=== PATIENT | female | born 1980 | race Caucasian/White ===

== ENCOUNTER 2017-10-11 13:36 | Emergency (ER) | payer OTHER ==
[~2017-10-11] VITALS: Ht 162.6 cm; Wt 95.3 kg
[2017-10-11] MEDS ORDERED: IV NORMAL SALINE 1,000ML 1,000 ML IV SCH (14:00)
--- NOTE | 2017-10-11 14:07 | PHYS DOC ---
Past History Past Medical History: No Pertinent History Past Surgical History: Appendectomy, Cholecystectomy, Hysterectomy Alcohol Use: None Drug Use: None Adult General Chief Complaint Chief Complaint: ABDOMINAL PAIN HPI HPI Patient is a 37-year-old female who presents for evaluation of abdominal pain as well as nausea and vomiting for the last week which has been progressively worsening. She is an appointment to see Dr. Estevez tomorrow for a hernia but due to increasing pain called the office and they directed her to come to the emergency department. She states she's vomited 3 times today. She was total hysterectomy back in April. She thinks that she has had fevers and chills and is noted to be afebrile upon arrival. She denies hematemesis, rectal bleeding, back pain, chest pain or shortness of breath, dizziness or syncope. She reports a history of a cholecystectomy, appendectomy, and the hysterectomy as discussed above. Review of Systems Review of Systems Constitutional: subjective fevers and chills Eyes: Denies change in visual acuity, redness, or eye pain [] HENT: Denies nasal congestion or sore throat [] Respiratory: Denies cough or shortness of breath [] Cardiovascular: No additional information not addressed in HPI [] GI: Denies bloody stools[] +periumbilical abd pain and n/v : Denies dysuria or hematuria [] Musculoskeletal: Denies back pain or joint pain [] Integument: Denies rash or skin lesions [] Neurologic: Denies headache, focal weakness or sensory changes [] Endocrine: Denies polyuria or polydipsia [] All other systems were reviewed and found to be within normal limits, except as documented in this note. Allergies Allergies Allergies Coded Allergies Type Severity Reaction Last Updated Verified prochlorperazine Allergy Unknown 10/11/17 Yes Physical Exam Physical Exam Constitutional: Well developed, well nourished, no acute distress, non-toxic appearance. [] HENT: Normocephalic, atraumatic, bilateral external ears normal, oropharynx moist, no oral exudates, nose normal. [] Eyes: PERRLA, EOMI, conjunctiva normal, no discharge. [] Neck: Normal range of motion, no tenderness, supple, no stridor. [] Cardiovascular:Heart rate regular rhythm, no murmur [] Lungs & Thorax: Bilateral breath sounds clear to auscultation [] Abdomen: Bowel sounds normal, soft, no masses, no pulsatile masses. [] mild periumbilical ttp, no guarding, no rebound, no rigidity Skin: Warm, dry, no erythema, no rash. [] Back: No tenderness, no CVA tenderness. [] Extremities: No tenderness, no cyanosis, no clubbing, ROM intact, no edema. [] Neurologic: Alert and oriented X 3, normal motor function, normal sensory function, no focal deficits noted. [] Psychologic: Affect normal, judgement normal, mood normal. [] Current Patient Data Vital Signs Vital Signs Date Time Temp Pulse Resp B/P (MAP) Pulse Ox O2 Delivery O2 Flow Rate FiO2 10/11/17 13:48 98.5 113 18 97 Room Air EKG EKG [] Radiology/Procedures Radiology/Procedures [address] [address] IMAGING REPORT Signed PATIENT: LILIAN NOGUERA ACCOUNT: [id number] : 1980 LOCATION: ER AGE: 37 SEX: F EXAM STATUS: REG ER ORD. PHYSICIAN: JONY PENNY DO REASON: periumbilical pain, n/v PROCEDURE: CT ABD PELV W/ IV CONTRST ONLY CT of the abdomen and pelvis with contrast 10/11/2017 2:48 PM Indication: NAUSEA, VOMITING, PERIUMBILICAL PAIN. PALPABLE LUMP BETWEEN STERNUM AND UMBILICUS. PAINFUL TO TOUCH. AREA APPRX MARKED WITH BB
Comparison study: None unavailable for review Technique: Multidetector CT imaging of the abdomen and pelvis was performed following the administration of IV contrast. Findings: There is a 4 mm noncalcified nodule in the left lung base (axial image #6. Bowel scarring or atelectasis is seen in the left lower lobe. The gallbladder is surgically absent. The liver demonstrates no acute abnormalities. The spleen and pancreas are grossly unremarkable. There is a 1.1 cm nodule in the left adrenal gland. The attenuation characteristics are nonspecific. The right adrenal gland is unremarkable. The kidneys are unremarkable. The bladder is grossly unremarkable. The appendix is surgically absent. There is no evidence of bowel obstruction. Mild descending and sigmoid colonic diverticulosis is noted. There is a small cyst in the inferior medial right liver. Postsurgical changes involving the terminal ileum appeared to be present. Correlate with surgical history. No free fluid or free air is seen in the abdomen or pelvis. There is a small fat filled ventral hernia noted superior to the umbilicus. The area lies just inferior to the skin marker placed in the area of palpable concern. The transverse colon immediately underlies the fatty hernia. The neck is narrow and best appreciated on sagittal views measuring 4 mm in diameter. Mild fat stranding associated with the fatty hernia seen. Findings may represent herniated peritoneal fat, or herniation of an epiploic appendage. Incarceration of the fatty hernia is possible given stranding and clinical history of pain. No evidence of acute osseous abnormality is identified. IMPRESSION: 1. Fat filled ventral hernia superior to the umbilicus containing retroperitoneal fat versus an epiploic appendage. Mild fat stranding is seen. Incarceration not excluded. 2. 1.1 cm nodule, left adrenal gland. Attenuation characteristics are nonspecific. Consider comparison with prior imaging versus adrenal protocol MRI. 3. 4 mm noncalcified nodule, left lung base. Recommend CT surveillance is described below. Laboratory Tests Test 10/11/17 14:00 10/11/17 14:14 Urine Collection Type Unknown Urine Color Yellow Urine Clarity Clear Urine pH 8.5 Urine Specific [place] 1.015 Urine Protein Neg Urine Glucose (UA) Neg mg/dL Urine Ketones (Stick) Neg mg/dL Urine Blood Neg Urine Nitrite Neg Urine Bilirubin Neg Urine Urobilinogen Dipstick 0.2 mg/dL Urine Leukocyte Esterase Neg Urine RBC 0 /HPF Urine WBC 0 /HPF Urine Squamous Epithelial Cells Few /LPF Urine Bacteria 0 /HPF Urine Mucus Slight /LPF White Blood Count 9.1 x10^3/uL Red Blood Count 4.69 x10^6/uL Hemoglobin 13.4 g/dL Hematocrit 39.8 % Mean Corpuscular Volume 85 fL Mean Corpuscular Hemoglobin 29 pg Mean Corpuscular Hemoglobin Concent 34 g/dL Red Cell Distribution Width 15.3 % Platelet Count 367 x10^3/uL Neutrophils (%) (Auto) 68 % Lymphocytes (%) (Auto) 21 % Monocytes (%) (Auto) 5 % Eosinophils (%) (Auto) 5 % Basophils (%) (Auto) 1 % Neutrophils # (Auto) 6.2 x10^3uL Lymphocytes # (Auto) 1.9 x10^3/uL Monocytes # (Auto) 0.4 x10^3/uL Eosinophils # (Auto) 0.5 x10^3/uL Basophils # (Auto) 0.1 x10^3/uL Sodium Level 138 mmol/L Potassium Level 3.9 mmol/L Chloride Level 104 mmol/L Carbon Dioxide Level 27 mmol/L Anion Gap 7 Blood Urea Nitrogen 10 mg/dL Creatinine 0.8 mg/dL Estimated GFR (Cockcroft-Gault) 79.9 BUN/Creatinine Ratio 13 Glucose Level 99 mg/dL Calcium Level 9.1 mg/dL Total Bilirubin 0.3 mg/dL Aspartate Amino Transf (AST/SGOT) 18 U/L Alanine Aminotransferase (ALT/SGPT) 31 U/L Alkaline Phosphatase 87 U/L Total Protein 7.0 g/dL Albumin 3.1 g/dL Albumin/Globulin Ratio 0.8 Lipase 101 U/L Current Medications Medications (Trade) Dose Ordered Sig/Symone Route PRN Reason Start Time Stop Time Status Last Admin Dose Admin Morphine Sulfate (Morphine 4mg Syringe) 4 mg PRN Q15MIN PRN IV/SQ PAIN GREATER THAN 3/10 10/11/17 14:00 10/12/17 13:59 10/11/17 15:09 Sodium Chloride 1,000 ml @ 1,000 mls/hr Q1H IV 10/11/17 14:00 10/11/17 14:59 DC 10/11/17 14:19 Ondansetron HCl (Zofran) 4 mg 1X ONCE IV 10/11/17 14:15 10/11/17 14:16 DC 10/11/17 14:19 Iohexol (Omnipaque 300 Mg/ml) 75 ml 1X ONCE IV 10/11/17 14:40 10/11/17 14:41 DC 10/11/17 14:27 Course & Med Decision Making Course & Med Decision Making Pertinent Labs and Imaging studies reviewed. (See chart for details) @3017 - Patient and family member updated on lab and imaging results. She has what appears to be an incarcerated ventral wall fat-containing hernia. Pt re- evaluated and she still appears quite uncomfortable despite multiple doses of narcotic pain medication. Explained to the patient that if we observe her overnight we do not have surgery available at this facility and that she would need to be transferred. She states she is okay with this plan. The patient's surgeon, Dr. Estevez, is unavailable at this time. [facility] called to discuss with general surgery. @4336 - Dr. Ng at [facility] accepts the transfer for surgical consultation as well as pain and nausea management. Dragon Disclaimer Dragon Disclaimer This electronic medical record was generated, in whole or in part, using a voice recognition dictation system. Departure Departure: Impression: Primary Impression: Ventral hernia Additional Impressions: Intractable abdominal pain Nausea and vomiting Disposition: 05 XFER OTHER (Dr. Ng at [facility]) Condition: STABLE Referrals: PCP,UNKNOWN (PCP) Problem Qualifiers JONY PENNY DO Oct 11, 2017 14:07
[2017-10-11] MEDS ORDERED: ONDANSETRON PF 4 MG/2 ML VIAL. IV ONE (14:15)
[2017-10-11] MEDS: MORPHINE SULFATE 4 MG/ML DISP.SYRIN. IV/SQ PRN ×2 (14:19→15:09)
[2017-10-11 14:22] LABS: BACTERIA,URINE 0 /HPF (0-FEW); BILIRUBIN,URINE NEG (NEG); CLARITY,URINE CLEAR; COLOR,URINE YELLOW; GLUCOSE,URINE NEG (NEG); NITRITE,URINE NEG (NEG); RBC,URINE 0 /HPF (0-2); SQUAMOUS EPITHELIAL CELL,UR FEW /LPF; UROBILINOGEN,URINE 0.2 mg/dL (0.2 mg/dL); WBC,URINE 0 /HPF (0-4)
[2017-10-11 14:35] LABS: BASO # 0.1 x10^3/uL (0.0-0.2); BASO % 1 % (0-3); EOS # 0.5 x10^3/uL (0.0-0.7); EOS % 5 % (0-3); HEMATOCRIT 39.8 % (36.0-47.0); HEMOGLOBIN 13.4 g/dL (12.0-15.5); LYMPH # 1.9 x10^3/uL (1.0-4.8); LYMPH % 21 % (24-48); MEAN CORPUSCULAR HEMOGLOBIN 29 pg (25-35); MEAN CORPUSCULAR HGB CONC 34 g/dL (31-37); MEAN CORPUSCULAR VOLUME 85 fL (79-100); MONO # 0.4 x10^3/uL (0.0-1.1); MONO % 5 % (0-9); NEUT # 6.2 x10^3uL (1.8-7.7); NEUT % 68 % (31-73); PLATELET COUNT 367 x10^3/uL (140-400); RED BLOOD COUNT 4.69 x10^6/uL (3.50-5.40); RED CELL DISTRIBUTION WIDTH 15.3 % (11.5-14.5); WHITE BLOOD COUNT 9.1 x10^3/uL (4.0-11.0)
[2017-10-11] MEDS ORDERED: IOHEXOL 300 MG/ML 75 ML VIAL. IV ONE (14:40)
[2017-10-11 14:47] LABS: ALBUMIN 3.1 g/dL (3.4-5.0); ALBUMIN/GLOBULIN RATIO 0.8 (1.0-1.7); CALCIUM 9.1 mg/dL (8.5-10.1); CREATININE 0.8 mg/dL (0.6-1.0); GFR 79.9; POTASSIUM 3.9 mmol/L (3.5-5.1); TOTAL BILIRUBIN 0.3 mg/dL (0.2-1.0)
--- NOTE | 2017-10-11 15:01 | RAD ---
CT of the abdomen and pelvis with contrast 10/11/2017 2:48 PM Indication: NAUSEA, VOMITING, PERIUMBILICAL PAIN. PALPABLE LUMP BETWEEN STERNUM AND UMBILICUS. PAINFUL TO TOUCH. AREA APPRX MARKED WITH BB
Comparison study: None unavailable for review Technique: Multidetector CT imaging of the abdomen and pelvis was performed following the administration of IV contrast. Findings: There is a 4 mm noncalcified nodule in the left lung base (axial image #6. Bowel scarring or atelectasis is seen in the left lower lobe. The gallbladder is surgically absent. The liver demonstrates no acute abnormalities. The spleen and pancreas are grossly unremarkable. There is a 1.1 cm nodule in the left adrenal gland. The attenuation characteristics are nonspecific. The right adrenal gland is unremarkable. The kidneys are unremarkable. The bladder is grossly unremarkable. The appendix is surgically absent. There is no evidence of bowel obstruction. Mild descending and sigmoid colonic diverticulosis is noted. There is a small cyst in the inferior medial right liver. Postsurgical changes involving the terminal ileum appeared to be present. Correlate with surgical history. No free fluid or free air is seen in the abdomen or pelvis. There is a small fat filled ventral hernia noted superior to the umbilicus. The area lies just inferior to the skin marker placed in the area of palpable concern. The transverse colon immediately underlies the fatty hernia. The neck is narrow and best appreciated on sagittal views measuring 4 mm in diameter. Mild fat stranding associated with the fatty hernia seen. Findings may represent herniated peritoneal fat, or herniation of an epiploic appendage. Incarceration of the fatty hernia is possible given stranding and clinical history of pain. No evidence of acute osseous abnormality is identified. IMPRESSION: 1. Fat filled ventral hernia superior to the umbilicus containing retroperitoneal fat versus an epiploic appendage. Mild fat stranding is seen. Incarceration not excluded. 2. 1.1 cm nodule, left adrenal gland. Attenuation characteristics are nonspecific. Consider comparison with prior imaging versus adrenal protocol MRI. 3. 4 mm noncalcified nodule, left lung base. Recommend CT surveillance is described below. Pulmonary Nodule Followup: Fleischner Society recommendations (Radiology 2005; 237; 395-400): In a low risk patient: 4mm or less - No follow up required. >4-6mm- 12 month follow up, if unchanged, no further follow up. >6-8mm- 6-12 month follow up, then at 18-24 months if no change. >8mm- 3, 9, 24 month follow up or consideration of PET/CT. In a high risk patient: <4mm - 12 month follow up, if unchanged then no further follow up. >4-6mm- 6-12 month follow up, then at 18-24 months if no change. >6-8mm- 3-6 month follow up, then at 9-12 months and [address] DOSING PQRS STATEMENT: One or more of the following individualized dose reduction techniques were utilized for this examination: 1. Automated exposure control 2. Adjustment of the mA and/or kV according to patient size 3. Use of iterative reconstruction technique Electronically signed by: Home Bell MD (10/11/2017 2:58 PM) [id number]
[2017-10-11] MEDS ORDERED: METOCLOPRAMIDE HCL 10 MG/2 ML VIAL. IV ONE (15:45)
[2017-10-11 16:26] VITALS: BP 134/93
== END 2017-10-11 16:40 | disposition short-term general hospital (02) ==
LOC: ER 13:36
DX: K43.9 Ventral hernia without obstruction or gangrene (principal); R11.2 Nausea with vomiting, unspecified; Z90.49 Acquired absence of other specified parts of digestive tract; Z90.710 Acquired absence of both cervix and uterus; Z88.8 Allergy status to other drugs, medicaments and biological substances
CPT/HCPCS: 36415; 74177; 80053; 81001; 83690; 85025; 96361; 96374; 96375; 96376; 99285; J2270; J2405; J2765; J3010; Q9967; J7030

== ENCOUNTER 2021-07-28 08:05 | Emergency (ER) | payer BC, OTHER ==
[~2021-07-28] VITALS: Ht 162.6 cm; Wt 115.7 kg
--- NOTE | 2021-07-28 08:24 | PHYS DOC ---
Past History Past Medical History: No Pertinent History Past Surgical History: Appendectomy, Cholecystectomy, Hysterectomy Alcohol Use: None Drug Use: None General Adult EDM: Chief Complaint: ABDOMINAL PAIN HPI: HPI: 41-year-old female presents with right lower quadrant abdominal pain. The patient works nights and she was having pain most of her shift. It started she was just sitting at her desk. The pain is a sharp stabbing pain 7 out of 10. 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 She has had a total hysterectomy and oophorectomy. She does not have an appendix. Denies fever, chills, falls, or trauma. Review of Systems: Review of Systems: Constitutional: Denies fever or chills Eyes: Denies change in visual acuity HENT: Denies nasal congestion or sore throat Respiratory: Denies cough or shortness of breath Cardiovascular: Denies chest pain or edema GI: Right lower quadrant abdominal pain. Denies nausea, vomiting, bloody stools or diarrhea : Denies dysuria Musculoskeletal: Denies back pain or joint pain Integument: Denies rash Neurologic: Denies headache, focal weakness or sensory changes Endocrine: Denies polyuria or polydipsia Lymphatic: Denies swollen glands Psychiatric: Denies depression or anxiety Current Medications: Current Meds: Current Medications Medications (Trade) Dose Ordered Sig/Symone Start Time Stop Time Status Last Admin Dose Admin Sodium Chloride 1,000 ml @ 1,000 mls/hr 1X ONCE 07/28/21 08:30 07/28/21 09:29 UNV Allergies: Allergies: Allergies Coded Allergies Type Severity Reaction Last Updated Verified prochlorperazine Allergy Unknown 10/11/17 Yes Physical Exam: PE: Constitutional: Well developed, well nourished, morbidly obese, no acute distress, non-toxic appearance. [] HENT: Normocephalic, atraumatic, bilateral external ears normal, oropharynx moist, no oral exudates, nose normal. [] Eyes: PERRLA, EOMI, conjunctiva normal, no discharge. [] Neck: Normal range of motion, no tenderness, supple, no stridor. [] Cardiovascular: Heart rate regular rhythm, no murmur [] Lungs & Thorax: Bilateral breath sounds clear to auscultation [] Abdomen: Bowel sounds normal, soft, right lower quadrant tenderness, no masses, no pulsatile masses. [] Skin: Warm, dry, no erythema, no rash. [] Back: No tenderness, no CVA tenderness. [] Extremities: No tenderness, no cyanosis, no clubbing, ROM intact, no edema. [] Neurologic: Alert and oriented X 3, normal motor function, normal sensory function, no focal deficits noted. [] Psychologic: Affect normal, judgement normal, mood normal. [] EKG: EKG: [] Radiology/Procedures: Radiology/Procedures: [] Impressions: Exam: CT abdomen/pelvis with intravenous contrast Indication: Right lower quadrant pain, history of bowel resection. Comparison: CT abdomen and pelvis 10/11/2017 Technique: Helical CT imaging performed of the abdomen and pelvis after the intravenous administration of 75 mL Omnipaque 300 contrast. Sagittal and coronal reformats were obtained. One or more of the following individualized dose reduction techniques were utilized for this examination: 1. Automated exposure control 2. Adjustment of the mA and/or kV according to patient size 3. Use of iterative reconstruction technique. Findings: Lower chest: Mild atelectasis in the lung bases. The heart is normal in size. Liver: The liver is normal in size. No focal liver lesion. Gallbladder/Biliary Tree: The gallbladder is surgically absent. Bile ducts are within normal limits. Pancreas: Normal. Spleen: Normal. Adrenal Glands: Unchanged 1.2 cm left adrenal nodule, indeterminate but stable from 2018. The right adrenal gland is normal. Kidneys/Ureters/Bladder: Normal. No hydronephrosis. Reproductive Organs: Uterus is surgically absent. No adnexal mass. Stomach, small bowel, and colon: The stomach, small bowel, and colon are normal. There are surgical changes of the distal small bowel. Probable surgical changes of appendectomy. Mild sigmoid diverticulosis. Vasculature: No aortic aneurysm. Lymph Nodes: No lymphadenopathy. Peritoneum and retroperitoneum: No free fluid or free air. Bones: No acute osseous abnormality. Miscellaneous: Interval repair of ventral hernia. Impression: 1. No acute abnormality in the abdomen and pelvis. 2. Unchanged 1.2 cm left adrenal nodule, indeterminate but likely an adenoma given stability since 2018. 3. Surgical changes of the distal small bowel and probable appendectomy. Electronically signed by: Angeline Garduno MD (07/28/2021 9:35 AM) [id number] DICTATED AND SIGNED BY: ANGELINE GRADUNO MD DATE: 07/28/2128 CC: KEVIN KEVIN DO; PCP,NO ~ Heart Score: C/O Chest Pain: N/A Risk Factors: Risk Factors: DM, Current or recent (<one month) smoker, HTN, HLP, family history of CAD, obesity. Risk Scores: Score 0 - 3: 2.5% MACE over next 6 weeks - Discharge Home Score 4 - 6: 20.3% MACE over next 6 weeks - Admit for Clinical Observation Score 7 - 10: 72.7% MACE over next 6 weeks - Early Invasive Strategies Course & Med Decision Making: Course & Med Decision Making Pertinent Labs and Imaging studies reviewed. (See chart for details) The patient's labs are unremarkable. Her urinalysis is negative for infection. The patient has needed morphine and Dilaudid for pain control. CT of the abdomen pelvis is negative for acute findings. Given her history, adhesions is a possible source. I have advised that she follow-up with her primary physician and consider surgery consult. I also advised that she follow-up with [facility]. She has had a hysterectomy and oophorectomy however she admits she gained a lot of weight after her surgery. I am unsure if estrogen levels from her body fat could contribute to hormonal activation of endometrial tissue. She will follow- up with the specialist. I will discharge her with a short course of [place]. She is stable for discharge at this time. [] Chon Disclaimer: [place] Disclaimer: This electronic medical record was generated, in whole or in part, using a voice recognition dictation system. Departure Departure: Impression: Primary Impression: Abdominal pain Disposition: HOME / SELF CARE / HOMELESS Condition: STABLE Referrals: PCP,NO (PCP) Patient Instructions: Abdominal Pain, [id number], Adhesions, [id number] Scripts Hydrocodone/Acetaminophen (Hydrocodone-Acetamin 5-325 mg) 1 Each Tablet 1 EACH PO Q4-6HRS PRN for PAIN, #10 TAB Prov: KEVIN KEVIN DO 07/28/21 KEVIN KEVIN DO July 28, 2021 08:23
[2021-07-28] MEDS ORDERED: MORPHINE SULFATE 4 MG/ML DISP.SYRIN. IV ONE (08:30)
[2021-07-28] MEDS ORDERED: IV NORMAL SALINE 1,000ML 1,000 ML IV ONE ×2 (08:30→09:45)
[2021-07-28] MEDS ORDERED: ONDANSETRON PF 4 MG/2 ML VIAL. IVP ONE (08:30)
[2021-07-28] MEDS ORDERED: IOHEXOL 300 MG/ML 75 ML VIAL. ONE (08:36)
[2021-07-28] MEDS ORDERED: IOHEXOL 300 MG/ML 75 ML VIAL. IV ONE (08:45)
[2021-07-28 08:51] LABS: BASO # 0.1 x10^3/uL (0.0-0.2); BASO % 1 % (0-3); EOS # 0.7 x10^3/uL (0.0-0.7); EOS % 10 % (0-3); HEMATOCRIT 37.2 % (36.0-47.0); HEMOGLOBIN 12.4 g/dL (12.0-15.5); LYMPH # 2.4 x10^3/uL (1.0-4.8); LYMPH % 36 % (24-48); MEAN CORPUSCULAR HEMOGLOBIN 28 pg (25-35); MEAN CORPUSCULAR HGB CONC 33 g/dL (31-37); MEAN CORPUSCULAR VOLUME 85 fL (79-100); MONO # 0.5 x10^3/uL (0.0-1.1); MONO % 8 % (0-9); NEUT # 3.1 x10^3uL (1.8-7.7); NEUT % 46 % (31-73); PLATELET COUNT 280 x10^3/uL (140-400); RED BLOOD COUNT 4.37 x10^6/uL (3.50-5.40); RED CELL DISTRIBUTION WIDTH 15.6 % (11.5-14.5); WHITE BLOOD COUNT 6.8 x10^3/uL (4.0-11.0)
[2021-07-28 08:59] LABS: CREATININE 0.8 mg/dL (0.6-1.0); GFR 78.3; POTASSIUM 3.4 mmol/L (3.5-5.1)
[2021-07-28 09:04] LABS: ALBUMIN 3.6 g/dL (3.4-5.0); ALBUMIN/GLOBULIN RATIO 1.1 (1.0-1.7); TOTAL BILIRUBIN 0.2 mg/dL (0.2-1.0)
--- NOTE | 2021-07-28 09:38 | RAD ---
Exam: CT abdomen/pelvis with intravenous contrast Indication: Right lower quadrant pain, history of bowel resection. Comparison: CT abdomen and pelvis 10/11/2017 Technique: Helical CT imaging performed of the abdomen and pelvis after the intravenous administratio n of 75 mL Omnipaque 300 contrast. Sagittal and coronal reformats were obtained. One or more of the following individualized dose reduction techniques were utilized for this examinat ion: 1. Automated exposure control 2. Adjustment of the mA and/or kV according to patient size 3. Use of iterative reconstruction technique. Findings: Lower chest: Mild atelectasis in the lung bases. The heart is normal in size. Liver: The liver is normal in size. No focal liver lesion. Gallbladder/Biliary Tree: The gallbladder is surgically absent. Bile ducts are within normal limits. Pancreas: Normal. Spleen: Normal. Adrenal Glands: Unchanged 1.2 cm left adrenal nodule, indeterminate but stable from 2018. The right a drenal gland is normal. Kidneys/Ureters/Bladder: Normal. No hydronephrosis. Reproductive Organs: Uterus is surgically absent. No adnexal mass. Stomach, small bowel, and colon: The stomach, small bowel, and colon are normal. There are surgical c hanges of the distal small bowel. Probable surgical changes of appendectomy. Mild sigmoid diverticulo sis. Vasculature: No aortic aneurysm. Lymph Nodes: No lymphadenopathy. Peritoneum and retroperitoneum: No free fluid or free air. Bones: No acute osseous abnormality. Miscellaneous: Interval repair of ventral hernia. Impression: 1. No acute abnormality in the abdomen and pelvis. 2. Unchanged 1.2 cm left adrenal nodule, indeterminate but likely an adenoma given stability since 2 018. 3. Surgical changes of the distal small bowel and probable appendectomy. Electronically signed by: Angeline Garduno MD (07/28/2021 9:35 AM) [id number]
[2021-07-28] MEDS ORDERED: HYDROmorphone PF 1 MG/ML DISP.SYRIN IVP ONE (09:45)
[2021-07-28 10:10] VITALS: BP 114/63
[2021-07-28 11:54] LABS: BACTERIA,URINE 0 /HPF (0-FEW); CLARITY,URINE CLEAR; COLOR,URINE YELLOW; GLUCOSE,URINE NEG (NEG); NITRITE,URINE NEG (NEG); RBC,URINE OCC /HPF (0-2); SQUAMOUS EPITHELIAL CELL,UR FEW /LPF; UROBILINOGEN,URINE 0.2 mg/dL (0.2 mg/dL); WBC,URINE OCC /HPF (0-4)
[2021-07-28] MEDS ORDERED: HYDR-2759 PO (12:05)
== END 2021-07-28 12:10 | disposition home or self-care (01) ==
LOC: ER 08:05
DX: R10.31 Right lower quadrant pain (principal); E66.01 Morbid (severe) obesity due to excess calories; Z90.89 Acquired absence of other organs; Z90.49 Acquired absence of other specified parts of digestive tract; Z90.710 Acquired absence of both cervix and uterus; Z88.8 Allergy status to other drugs, medicaments and biological substances; Z68.41 Body mass index [BMI] 40.0-44.9, adult
CPT/HCPCS: 36415; 74177; 80053; 81001; 85025; 96361; 96374; 96375; 99285; J1170; J2270; J2405; J7030; Q9967

== ENCOUNTER 2021-08-04 16:58 | Emergency (ER) | payer BC ==
[~2021-08-04] VITALS: Ht 162.6 cm; Wt 113.8 kg
[~2021-08-04 16:58] MED LIST: HYDR-2759 PO
[2021-08-04 17:00] VITALS: BP 135/83
--- NOTE | 2021-08-04 17:57 | PHYS DOC ---
Past History Past Medical History: No Pertinent History Additional Past Medical Histor: ADHD (SUSAN KLEIN APRN) Past Surgical History: Appendectomy, Cholecystectomy, Hysterectomy Additional Past Surgical Histo: bowel resection (SUSAN KLEIN APRN) Alcohol Use: None Drug Use: None (SUSAN KLEIN APRN) General Adult EDM: Chief Complaint: ABDOMINAL PAIN HPI: HPI: Patient is a 41-year-old female who presents to the emergency department for bilateral lower abdominal pain that radiates to her flank. Patient reports that her symptoms have been intermittent over the last 6 months. She reports that she has been seeing her primary care provider and was seen in this emergency department on for similar symptoms and was told that her pain is due to en dometriosis and was told to follow-up with an CUSTOMER MARKETING MANAGER. She reports she has an appointment on August 31 at [facility] with an CUSTOMER MARKETING MANAGER. She reports that these symptoms feel similar to when she was diagnosed with her endometriosis. She has been receiving oxycodone by her primary care provider in [place] but recently moved to [place] and does not have a primary care provider. Patient reports taking 800 mg of ibuprofen 1 hour prior to arrival. She denies any vaginal bleeding, nausea, vomiting, diarrhea, urinary symptoms. (SUSAN KLEIN APRN) Review of Systems: Review of Systems: GI: See HPI : See HPI Musculoskeletal: See HPI (SUSAN KLEIN APRN) Current Medications: Current Meds: Current Medications Medications (Trade) Dose Ordered Sig/Symone Start Time Stop Time Status Last Admin Dose Admin Acetaminophen/ Hydrocodone Bitart (Lortab 5/325) 1 tab 1X ONCE 08/04/21 18:00 08/04/21 18:01 (SUSAN KLEIN APRN) Allergies: Allergies: Allergies Coded Allergies Type Severity Reaction Last Updated Verified prochlorperazine Allergy Unknown 08/04/21 Yes (SUSAN KLEIN APRN) Physical Exam: PE: Constitutional: Well developed, well nourished, no acute distress, non-toxic appearance. [] HENT: Normocephalic, atraumatic, bilateral external ears normal, oropharynx moist, no oral exudates, nose normal. [] Eyes: PERRL, EOMI, conjunctiva normal, no discharge. [] Neck: Normal range of motion, no stridor Cardiovascular:Heart rate regular rhythm, no murmur [] Lungs & Thorax: Bilateral breath sounds clear to auscultation [] Abdomen: Bowel sounds normal, soft, no abdominal guarding or rigidity, bilateral lower abdominal tenderness with palpation,, no masses, no pulsatile masses. [] Skin: Warm, dry, no erythema, no rash. [] Back: No tenderness, no CVA tenderness. [] Extremities: No tenderness, no cyanosis, no clubbing, ROM intact, no edema. [] Neurologic: Alert and oriented X 3, normal motor function, normal sensory function, no focal deficits noted. [] Psychologic: Affect normal, judgement normal, mood normal. [] (SUSAN KLEIN APRN) Current Patient Data: Labs: Laboratory Tests Test 08/04/21 18:00 Urine Collection Type Clean catch Urine Color Yellow Urine Clarity Clear Urine pH 6.0 Urine Specific [place] 1.015 Urine Protein Neg Urine Glucose (UA) Neg mg/dL Urine Ketones (Stick) Neg mg/dL Urine Blood Trace Urine Nitrite Neg Urine Bilirubin Neg Urine Urobilinogen Dipstick 0.2 mg/dL Urine Leukocyte Esterase Neg Urine RBC Occ /HPF Urine WBC 0 /HPF Urine Squamous Epithelial Cells Few /LPF Urine Bacteria 0 /HPF Current Medications Medications (Trade) Dose Ordered Sig/Symone Route PRN Reason Start Time Stop Time Status Last Admin Dose Admin Acetaminophen/ Hydrocodone Bitart (Lortab 5/325) 1 tab 1X ONCE PO 08/04/21 18:00 08/04/21 18:01 DC 08/04/21 18:14 (SUSAN KLEIN APRN) EKG: EKG: [] (SUSAN KLEIN APRN) Radiology/Procedures: Radiology/Procedures: [] (SUSAN KLEIN APRN) Heart Score: C/O Chest Pain: N/A Risk Factors: Risk Factors: DM, Current or recent (<one month) smoker, HTN, HLP, family history of CAD, obesity. Risk Scores: Score 0 - 3: 2.5% MACE over next 6 weeks - Discharge Home Score 4 - 6: 20.3% MACE over next 6 weeks - Admit for Clinical Observation Score 7 - 10: 72.7% MACE over next 6 weeks - Early Invasive Strategies (SUSAN KLEIN APRN) Course & Med Decision Making: Course & Med Decision Making Pertinent Labs and Imaging studies reviewed. (See chart for details) [] Patient presents to the emergency for lower pelvic pain. Patient has a history of endometriosis and reports that this feels like the pain she usually experiences with her endometriosis. She was receiving oxycodone from her primary care provider but recently moved to [facility] and has been unable to establish care with a primary care provider. Patient is work-up consisted of urinalysis to rule out infection. Patient will be given pain med ication in the ER. Patient has had numerous abdominal surgeries including a bowel resection and a full hysterectomy. It is possible that patient's pain is due to adhesions and therefore she will be referred to a general surgeon and primary care provider as she does not have established care in [place] [facility]. Patient had a CT scan in this emergency department on July 28 that was negative for any acute findings. Her blood work was also mostly unremarkable. Offered additional CT imaging of abdomen and pelvis with patient she refused. Patient will be discharged home with pain medication. (SUSAN KLEIN APRN) Dragon Disclaimer: Dragon Disclaimer: This electronic medical record was generated, in whole or in part, using a voice recognition dictation system. (SUSAN KLEIN APRN) Attending Co-Sign The patient was seen and interviewed as well as examined at the bedside. The chart was reviewed. The case was discussed. Agree with the plan of care. (KEVIN KEVIN DO) Departure Departure: Impression: Primary Impression: Chronic abdominal pain Disposition: 01 HOME / SELF CARE / HOMELESS Condition: GOOD Referrals: PCP,JESSE (PCP) ADILENE ELIZABETH MD Patient Instructions: Abdominal Pain (Nonspecific) Additional Instructions: You are seen in the emergency department today for chronic abdominal pain. As we discussed, your work-up 7 days ago in this emergency department was unremarkable. You are being discharged home with pain medication. This medication may cause sedation. Do not take this medication when he needs to be alert, driving a vehicle or with alcohol. You will need to follow-up with a primary care provider and possibly a general surgeon. Please see attached referral information. Please return to this emergency department or go to an emergency department with general surgery coverage such as [facility] if you develop worsening of your abdominal pain, high fevers refractory to treatment, intractable nausea or vomiting or any new or worsening concerns. Scripts Hydrocodone/Acetaminophen (Hydrocodone-Acetamin 5-325 mg) 1 Each Tablet 1 EACH PO Q4-6HRS PRN for PAIN, #10 TAB Prov: KEVIN KEVIN DO 08/04/21 SUSAN KLEIN BOW STAPLER August 04, 2021 17:57 KEVIN KEVIN DO August 06, 2021 06:35
[2021-08-04] MEDS ORDERED: HYDROcodone/APAP 5/325MG 1 TAB TABLET PO ONE (18:00)
[2021-08-04 18:38] LABS: CLARITY,URINE CLEAR; COLOR,URINE YELLOW; GLUCOSE,URINE NEG (NEG); UROBILINOGEN,URINE 0.2 mg/dL (0.2 mg/dL)
[2021-08-04 18:39] LABS: BACTERIA,URINE 0 /HPF (0-FEW); NITRITE,URINE NEG (NEG); RBC,URINE OCC /HPF (0-2); SQUAMOUS EPITHELIAL CELL,UR FEW /LPF; WBC,URINE 0 /HPF (0-4)
[2021-08-04] MEDS ORDERED: HYDR-2759 PO (18:49)
== END 2021-08-04 18:59 | disposition home or self-care (01) ==
LOC: ER 16:58
DX: G89.29 Other chronic pain (principal); R10.31 Right lower quadrant pain; R10.32 Left lower quadrant pain; Z90.89 Acquired absence of other organs; Z90.49 Acquired absence of other specified parts of digestive tract; Z90.710 Acquired absence of both cervix and uterus; Z88.8 Allergy status to other drugs, medicaments and biological substances
CPT/HCPCS: 81001; 99283